=== PATIENT | female | born 1955 | race Caucasian/White ===

== ENCOUNTER 2025-07-07 10:54 | Day surgery (SDC) | payer MEDICARE ==
[~2025-07-07] VITALS: Ht 152.4 cm; Wt 45.7 kg
[2025-07-07] MEDS ORDERED: ONDA4ODT (11:17)
[2025-07-07] MEDS ORDERED: CALTRATE (11:19)
[2025-07-07] MEDS ORDERED: FAMO10 (11:19)
[2025-07-07] MEDS ORDERED: [UNRECOGNIZED DRUG - OTHER] (11:19)
[2025-07-07] MEDS ORDERED: ALLEGRA ALLERG180 MG (11:19)
[2025-07-07 12:48] VITALS: BP 115/70
== END 2025-07-07 12:48 | disposition home or self-care (01) ==
LOC: ORSCSDS 10:54
DX: K21.9 Gastro-esophageal reflux disease without esophagitis (principal); K44.9 Diaphragmatic hernia without obstruction or gangrene; K22.2 Esophageal obstruction; K29.50 Unspecified chronic gastritis without bleeding; R13.10 Dysphagia, unspecified; K90.0 Celiac disease; Z79.899 Other long term (current) drug therapy
CPT/HCPCS: 88305; 88342; C1769; J2704; J7120